=== PATIENT | male | born 1990 | race Caucasian/White ===

== ENCOUNTER 2018-04-11 16:46 | Emergency (ER) | payer SELFPAY ==
[~2018-04-11] VITALS: Ht 172.7 cm; Wt 98.0 kg
[2018-04-11] MEDS ORDERED: ONDANSETRON HCL 4MG/2ML VIAL IV STA (17:03)
[2018-04-11] MEDS ORDERED: SODIUM CHLORIDE 0.9% 1,000 ML IV ONE ×2 (17:03→19:01)
[2018-04-11] MEDS ORDERED: LORAZEPAM 2MG/ML CPJ ONE (17:27)
[2018-04-11] MEDS ORDERED: LORAZEPAM 2MG/ML CPJ IV ONE (17:30)
[2018-04-11] MEDS ORDERED: OLANZAPINE 10 MG/VIAL IM ONE (17:30)
[2018-04-11 17:51] LABS: BASOPHILS % 0.8 % (0.0-2.0); EOSINOPHILS % 0.9 % (0.0-5.0); HEMATOCRIT. 37.9 % (42.0-52.0); LYMPHOCYTES % 24.4 % (20.0-50.0); MEAN CORPUSCULAR HEMOGLOBIN 33.1 pg (28.0-32.0); MEAN CORPUSCULAR VOLUME 96.6 fL (80.0-94.0); MEAN PLATELET VOLUME 8.6 fl (7.4-10.4); MONOCYTES % 12.3 % (2.0-8.0); NEUTROPHILS % 61.6 % (40.0-76.0); PLATELET 209 x1000/uL (130-400); RED BLOOD CELL COUNT 3.92 mill/uL (4.7-6.1); RED CELL DISTRIBUTION WIDTH 12.9 % (11.6-14.6)
[2018-04-11 17:56] LABS: CHLORIDE 103 mEq/L (98-107)
[2018-04-11 18:00] LABS: ETHANOL BLOOD < 10 mg/dL
[2018-04-11 18:05] LABS: CREATINE KINASE 392 IU/L (39-308)
[2018-04-11 18:07] LABS: AMMONIA 25 uMol/L (<32)
[2018-04-11 20:05] LABS: CREATINE KINASE 340 IU/L (39-308)
[2018-04-12 07:39] LABS: CLARITY URINE CLEAR (CLEAR); COLOR URINE YELLOW (YELLOW); KETONES URINE NEGATIVE (NEGATIVE); LEUKOCYTE ESTERASE URINE NEGATIVE (NEGATIVE); NITRITE URINE NEGATIVE (NEGATIVE); OCCULT BLOOD URINE NEGATIVE (NEGATIVE); PH URINE 6.5 (4.5-8.0); PROTEIN URINE NEGATIVE (NEGATIVE); SPECIFIC GRAVITY URINE 1.019 (1.005-1.030)
[2018-04-12 08:07] LABS: *AMPHETAMINES SCREEN URINE PRESUMTIVE POSITIVE (NEGATIVE); *BARBITURATES SCREEN URINE NEGATIVE (NEGATIVE); *BENZODIAZEPINES SCREEN URINE NEGATIVE (NEGATIVE); *COCAINE SCREEN URINE NEGATIVE (NEGATIVE)
[2018-04-12 08:08] LABS: CANNABINOID URINE SCREEN NEGATIVE (NEGATIVE); METHADONE URINE SCREEN NEGATIVE (NEGATIVE); OPIATES URINE SCREEN NEGATIVE (NEGATIVE); PHENCYCLIDINE URINE SCREEN NEGATIVE (NEGATIVE)
[2018-04-12 14:32] VITALS: BP 122/74
== END 2018-04-12 14:33 | disposition home or self-care (01) ==
LOC: ER 18:26
DX: T43.592A Poisoning by other antipsychotics and neuroleptics, intentional self-harm, initial encounter (principal); T43.622A Poisoning by amphetamines, intentional self-harm, initial encounter; G92 Toxic encephalopathy; E86.0 Dehydration; M62.82 Rhabdomyolysis; F32.9 Major depressive disorder, single episode, unspecified; F41.9 Anxiety disorder, unspecified; D64.9 Anemia, unspecified; R94.31 Abnormal electrocardiogram [ECG] [EKG]; Y92.018 Other place in single-family (private) house as the place of occurrence of the external cause
CPT/HCPCS: 36415; 80053; 80305; 80307; 80329; 81003; 82140; 82550; 84443; 84484; 85025; 93005; 96361; 96372; 96374; 96375; 99285; G0482; J2060; J2405; J3490; J7030